=== PATIENT | male | born 1955 | race Caucasian/White ===

== ENCOUNTER 2021-07-21 10:43 | Emergency (ER) | payer OTHER ==
[~2021-07-21] VITALS: Ht 175.3 cm; Wt 96.6 kg
[~2021-07-21 10:43] MED LIST: METF500T PO
[2021-07-21 11:12] VITALS: BP 165/89
--- NOTE | 2021-07-21 11:18 | NUR ---
ermd assessing pt in triage
[2021-07-21] MEDS ORDERED: NAPR-1704 PO (11:24)
--- NOTE | 2021-07-21 12:03 | NUR ---
CALLED PATIENT AND INFORMED HAVE DISCHARGE PAPERWORK READY. PER PATIENT "HE LEFT TO GET FOOD AND DOES NOT NEED HIS DISCHARGE PAPERWORK"
[2021-07-21 12:04] VITALS: BP 165/89
--- NOTE | 2021-07-21 12:04 | NUR ---
PATIENT LEFT WITHOUT DISCHARGE PAPERWORK.
== END 2021-07-21 12:04 | disposition home or self-care (01) ==
LOC: MED 10:43
DX: U07.1 COVID-19 (principal)
CPT/HCPCS: 99283; U0003

== ENCOUNTER 2023-07-30 16:35 | Emergency (ER) | payer OTHER, MEDICAID ==
[~2023-07-30] VITALS: Ht 167.6 cm; Wt 72.6 kg
[~2023-07-30 16:35] MED LIST changes: +METF-346 PO; -METF500T PO; +NAPR-1704 PO
[2023-07-30 16:49] VITALS: BP 156/100; PULSE 97; RESP 18; TEMP 98.3; O2SAT 98
== END 2023-07-30 19:33 | disposition home or self-care (01) ==
LOC: MED 16:35
DX: M25.511 Pain in right shoulder (principal); E11.9 Type 2 diabetes mellitus without complications; I10 Essential (primary) hypertension; Z79.899 Other long term (current) drug therapy; Z79.1 Long term (current) use of non-steroidal anti-inflammatories (NSAID); V89.2XXA Person injured in unspecified motor-vehicle accident, traffic, initial encounter; Y93.89 Activity, other specified; Y92.410 Unspecified street and highway as the place of occurrence of the external cause; Y99.8 Other external cause status
CPT/HCPCS: 73030; 99283